=== PATIENT | female | born 1975 | race African-American/Black ===

== ENCOUNTER 2016-09-10 21:32 | Inpatient (IN) | payer BC ==
--- NOTE | ~2016-09-10 | EKG ---
PATIENT: TAWNYA ALVAREZ UNIT #: [id number] Ventricular Rate: 110 BPM Atrial Rate: 110 BPM P-R Interval: 134 ms QRS Duration: 74 ms Q-T Interval: 364 ms QTC Calculation(Bezet): 492 ms P [place]: 46 degrees Calculated R [place]: 16 degrees Calculated T [place]: 94 degrees Diagnosis Line: Sinus tachycardia Diagnosis Line: Possible Left atrial enlargement Diagnosis Line: Left ventricular hypertrophy Diagnosis Line: Nonspecific T wave abnormality Diagnosis Line: Abnormal ECG Diagnosis Line: No previous ECGs available Diagnosis Line: Confirmed by MELISA OH MD ([id number]) on Diagnosis Line: 09/13/2016 8:34:07 AM INTERPRETING MD: ALTHEA RUBIN
--- NOTE | ~2016-09-10 | DS ---
Unit #: [id number] #: [id number] Patient: TAWNYA MORGAN [id number] [address] [place], [place] [address] [id number] I MR#: [id number] NAME: TAWNYA MORGAN. ROOM: 324 Age: 41 Sex: F Admission Date: 09/11/2016 : 1975 Discharge Date: 09/15/2016 Attending Physician: Rossana Leahy M.D. Primary Care Physician: No Primary Care Physician DISCHARGE SUMMARY PRINCIPAL DIAGNOSES 1. Acute exacerbation of chronic obstructive pulmonary disease. 2. Hypertension, uncontrolled. 3. Pleuritic chest pain. 4. Tobaccoism. 5. Obesity. 6. Steroid-induced hyperglycemia. CONSULTANTS Dr. Lu - Pulmonology. PROCEDURES 1. Chest x-ray on September 10, 2016, which was normal. 2. CT angiogram of the chest on September 11, 2016, without evidence of aortic dissection. No obvious PE but bolus timing was poor. Cholelithiasis noted. 3. V/Q lung scan on September 13, 2016, which was low probability. CLINICAL HISTORY/HOSPITAL COURSE Ms. Morgan is a very nice 41-year-old -Niue[place] female who presented to the emergency department with increasing shortness of breath, cough and left sided chest pain. Please refer to H and P for further details. Chest x-ray in the emergency department was unremarkable. D-dimer was only mildly elevated at a little over 500. She was found to have significant wheezing on exam but no evidence of hypoxia. She was initially placed in observation. The patient was started on IV steroids in addition to breathing treatment but, unfortunately, still had significant shortness of breath but no evidence of hypoxia. Dr. Lu was consulted and, ultimately, steroid dose had to be increased and patient was transitioned to inpatient status. Over the course of the next several days, the patient's wheezing has resolved even with a tapering dose of steroids. Again, she has not had any hypoxia. I suspect patient has some underlying COPD plus or minus asthma given family history. She will complete a tapering course of steroids as an outpatient in addition to adding Symbicort and albuterol on a p.r.n. basis. We have discussed tobacco cessation. The patient has had all of her cigarettes discarded from her home. The patient also had significant hypertension which was uncontrolled. She has been placed on medications as outlined below and blood pressure is now controlled. This can be followed up as an outpatient. The patient also had very mild steroid-induced hyperglycemia. Sugars only Unit #: [id number] #: [id number] Patient: TAWNYA MORGAN got as high as approximately 124. I do not think she is diabetic and A1c was not done. The patient will be discharged home with followup as outlined below. DISCHARGE CONDITION Stable. DISCHARGE STATUS Discharge to home. DISCHARGE MEDICATIONS 1. Prednisone 10 mg tablets, four tablets for four days, three tablets for four days, two tablets for four days, one tablet for four days and discontinue. 2. Albuterol inhaler, one to two puffs every four hours p.r.n. for shortness of air. 3. Symbicort 80/4.5, two puffs b.i.d. with one refill given. 4. Norvasc 10 mg daily with one refill given. 5. Hydrochlorothiazide 25 mg p.o. daily with one refill given. 6. Hydralazine 25 mg p.o. b.i.d. with one refill given. 7. Lisinopril 40 mg p.o. daily with one refill given. 8. Tessalon Perles 200 mg p.o. t.i.d. p.r.n. for cough. DISCHARGE INSTRUCTIONS The patient was instructed to follow a heart healthy low calorie diet. She can increase her activity as tolerated. The patient was excused from work until September 28, 2016. FOLLOWUP The patient will follow up with Dr. Lu in approximately two weeks. She needs outpatient pulmonary function testing and perhaps outpatient polysomnography as well. She will follow up with her primary care provider in one month. Time spent on discharge - 37 minutes. Dictated by... Rossana Leahy M.D. OLAYINKA/tri TD: 09/15/2016 10:24 JOB #: [id number] DISCHARGE SUMMARY Page 1 of 1 X Rossana Leahy MD X DISCHARGE SUMMARY
--- NOTE | ~2016-09-10 | NM69 ---
[facility] A Service of [facility] RADIOLOGY TEXT RESULTS PATIENT: TAWNYA ALVAREZ LOCATION: [facility] 324 : [birth year] UNIT #: [id number] AGE: [address]: Iliana Chowdary MD SEX: F ORDER DR: [id number] [facility] [address]. [place], [place] [address] [id number] I MR#: [id number] Acc #: [id number] NAME: TAWNYA ALVAREZ : 1975 SEX: F STUDY DATE/TIME: 09/13/2016 12:07 UNIT: [address] ROOM: [facility] STUDY DESCRIPTION: NM Pulm Vent and Perf Attending Physician: Iliana Chowdary M.D. Ordering Physician: Iliana Chowdary M.D. Primary Care Physician: No Primary Care Physician MEDICAL IMAGING REPORT This report is preliminary unless electronic signature is present EXAM VQ lung scan. Date: 09/13/2016 HISTORY Left side chest pain and shortness breath since 09/10/2016. Nonproductive cough. Smoking history. D-dimer 523. COMPARISON PA lateral chest radiograph 09/12/2069. CTA chest PE protocol 09/11/2016. FINDINGS Following the inhalation of 34.5 mCi technetium 99m DTPA in aerosol form for ventilation imaging purposes, and the intravenous administration of 6 mCi technetium 99m MAA for perfusion imaging purposes, multiple projections were obtained of the chest compared to the chest radiograph from 09/12/2016 at 07:33. FINDINGS No VQ mismatch is seen. Normal radiopharmaceutical uptake is demonstrated within both lungs. IMPRESSION Normal VQ lung scan. Dictated by... Evita Vargas M.D. THIS IS AN ELECTRONICALLY VERIFIED REPORT [facility] A Service of [facility] RADIOLOGY TEXT RESULTS PATIENT: TAWNYA ALVAREZ LOCATION: [facility] 324 : [birth year] UNIT #: [id number] AGE: [address]: Iliana Chowdary MD SEX: F ORDER DR: Evita Vargas M.D. at 09/14/2016 7:08 AM BARBIE/nellie TD: 09/13/2016 15:03 JOB #: [id number] MEDICAL IMAGING REPORT Page 1 of 1 COPY
--- NOTE | ~2016-09-10 | CO ---
Unit #: [id number] #: [id number] Patient: TAWNYA ALVAREZ [id number] [address] [place], [place] [address] [id number] I MR#: [id number] NAME: TAWNYA ALVAREZ ROOM: 324 Age: 41 Sex: F Admission Date: 09/11/2016 : 1975 Attending Physician: Iliana Chowdary M.D. Primary Care Physician: No Primary Care Physician CONSULTATION REPORT REASON FOR CONSULTATION COPD and bronchitis. CHIEF COMPLAINT Shortness of breath. 41-year-old female with a past medical history likely for COPD. Smokes about a pack per day for many years. Came in with a complaint of shortness of breath, cough and chest pain. CT chest was poor timing and PE could not be ruled out. I am seeing her at bedside. She appears to be comfortable, not in any acute distress, complaining of cough and shortness of breath. REVIEW OF SYSTEMS Positive pallor. No edema, no cyanosis, no jaundice. PHYSICAL EXAMINATION VITAL SIGNS: Temperature 98, pulse 87, respirations 12, blood pressure 130/70. NEUROLOGICAL: Awake, alert, oriented. No neuro deficit. HEENT: PERRLA. NECK: Supple. No JVD. CHEST: Bilateral air entry, bilateral mild rhonchi. GI: Nontender, soft. Bowel sounds positive. EXTREMITIES: No edema. SKIN: No rashes, no ulcers. LYMPHATIC: No lymphadenopathy. DIAGNOSTIC STUDIES Labs and imaging have been reviewed. ASSESSMENT AND PLAN 1. Acute bronchitis. 2. Acute exacerbation of likely chronic obstructive pulmonary disease, likely obstructive sleep apnea. Plan is to check a BMP and also will need a V/Q scan and will need Symbicort and albuterol on discharge. Will continue patient on IV steroid. Will add p.o. antibiotics. Please see orders for detailed plan. Thank you very much for this consultation. Unit #: [id number] #: [id number] Patient: TAWNYA ALVAREZ Dictated by... Zachery Shin TD: 09/12/2016 08:17 JOB #: [id number] CONSULTATION REPORT Page 1 of 1 X Tanesha Lu MD CONSULTATION REPORT
--- NOTE | ~2016-09-10 | CR72 ---
[facility] A Service of [facility] RADIOLOGY TEXT RESULTS PATIENT: TAWNYA ALVAREZ LOCATION: [facility] 324-01 : [birth year] UNIT #: [id number] AGE: [address]: Iliana Chowdary MD SEX: F ORDER DR: [id number] [facility] [address] [place], [place] [address] [id number] I MR#: [id number] Acc #: [id number] NAME: TAWNYA ALVAREZ : 1975 SEX: F STUDY DATE/TIME: 09/10/2016 22:30 UNIT: [address] ROOM: [facility] STUDY DESCRIPTION: CR Chest Single View Portable Attending Physician: Iliana Chowdary M.D. Ordering Physician: Rolf Donohue D.O. Primary Care Physician: Primary Care Physician No MEDICAL IMAGING REPORT This report is preliminary unless electronic signature is present EXAM Portable chest, 09/10 at 22:30 INDICATIONS Chest pain, shortness of air and cough that started yesterday. FINDINGS A single AP portable view of the chest shows both lungs to be clear. The heart is normal in size. The mediastinal contour is normal. No significant bone abnormalities are seen. IMPRESSION Normal portable chest. Dictated by... Evan Cheema Jr., M.D. THIS IS AN ELECTRONICALLY VERIFIED REPORT Evan Cheema Jr., M.D. at 09/14/2016 6:00 AM JESSICA/kelly TD: 09/13/2016 22:52 JOB #: [id number] MEDICAL IMAGING REPORT Page 1 of 1 COPY
--- NOTE | ~2016-09-10 | CR63 ---
[facility] A Service of [facility] & [facility] RADIOLOGY TEXT RESULTS PATIENT: TAWNYA ALVAREZ LOCATION: [facility] 324-01 : [birth year] UNIT #: [id number] AGE: [address]: Iliana Chowdary MD SEX: F ORDER DR: [id number] [facility] [address]. [place], [place] [address] [id number] I MR#: [id number] Acc #: [id number] NAME: TAWNYA ALVAREZ : 1975 SEX: F STUDY DATE/TIME: 09/12/2016 7:33 UNIT: [address] ROOM: [facility] STUDY DESCRIPTION: CR Chest 2 View Attending Physician: Iliana Chowdary M.D. Ordering Physician: Iliana Chowdary M.D. Primary Care Physician: Primary Care Physician No MEDICAL IMAGING REPORT This report is preliminary unless electronic signature is present EXAM AP and lateral chest INDICATIONS Shortness of breath for 3 days. Comparison with 09/10/2016. FINDINGS The lungs are well expanded. No acute infiltrate. Heart size normal. Visualized osseous structures are unremarkable. IMPRESSION No active disease. Dictated by... Ernie Irvin M.D. THIS IS AN ELECTRONICALLY VERIFIED REPORT Ernie Irvin M.D. at 09/13/2016 2:19 PM ARS/psc TD: 09/12/2016 22:30 JOB #: [id number] MEDICAL IMAGING REPORT Page 1 of 1 COPY
--- NOTE | ~2016-09-10 | CT16 ---
[facility] A Service of [facility] & [facility] RADIOLOGY TEXT RESULTS PATIENT: TAWNYA ALVAREZ LOCATION: [facility] 324-01 : [birth year] UNIT #: [id number] AGE: [address]: Iliana Chowdary MD SEX: F ORDER DR: [id number] [facility] [address] [place], [place] [address] [id number] I MR#: [id number] Acc #: [id number] NAME: TAWNYA ALVAREZ : 1975 SEX: F STUDY DATE/TIME: 09/11/2016 01:56 UNIT: A U ROOM: 324 STUDY DESCRIPTION: CT Angio Chest for PE Attending Physician: Iliana Chowdary M.D. Ordering Physician: oRlf Donohue D.O. Primary Care Physician: Primary Care Physician No MEDICAL IMAGING REPORT This report is preliminary unless electronic signature is present EXAM Chest CTA 09/11/2016 01:56 INDICATION Cough, shortness of air and left side chest pain that started 3 o'clock yesterday. Pain currently rates 7/10. TECHNIQUE Axial images were obtained through the chest following IV contrast administration. 3-D reformats were obtained. No comparison. This CT examination was performed with one or more of the following radiation dose reduction techniques: automatic exposure control, adjustment of mA and/or kV according to patient size, and iterative reconstruction. FINDINGS Bolus timing is suboptimal. There is no aortic aneurysm or dissection. No large pulmonary embolism is seen. Smaller emboli could be missed due to timing of the bolus. If this remains of concern clinically, recommend a repeat study. No pleural or pericardial effusion. No adenopathy. The lungs are clear. No pneumothorax is seen. Continuation through the upper abdomen demonstrates gallstones within an otherwise normal-appearing gallbladder. IMPRESSION 1. No aortic dissection. 2. Exam is degraded by poor bolus timing. No large pulmonary embolism is seen. If there is concern for smaller emboli, I would recommend a repeat study if renal function permits. 3. No active disease in the chest. 4. Cholelithiasis. Dictated by... [facility] A Service of [facility] & [facility] RADIOLOGY TEXT RESULTS PATIENT: TAWNYA ALVAREZ LOCATION: [facility] 324- : [birth year] UNIT #: [id number] AGE: [address]: Iliana Chowdary MD SEX: F ORDER DR: Evan Cheema Jr., M.D. THIS IS AN ELECTRONICALLY VERIFIED REPORT Evan Cheema Jr., M.D. at 09/11/2016 9:13 PM JESSICA/hortencia TD: 09/11/2016 10:29 JOB #: [id number] MEDICAL IMAGING REPORT Page 1 of 1 COPY
--- NOTE | ~2016-09-10 | HP ---
Unit #: [id number] #: [id number] Patient: TAWNYA ALVAREZ [id number] [facility]. [place], [place] [address] [id number] I MR#: [id number] NAME: TAWNYA ALVAREZ. ROOM: 324 Age: 41 Sex: F Admission Date: 09/11/2016 : 1975 Attending Physician: Iliana Chowdary M.D. Primary Care Physician: No Primary Care Physician HISTORY AND PHYSICAL CHIEF COMPLAINT Shortness of breath for two days, cough and left sided chest pain for two days. HISTORY OF PRESENT ILLNESS The patient is a 41-year-old -Turkish female who basically presented with shortness of breath and cough for the past two days. She came into the emergency room and does have a history of hypertension. Other than that, she smokes Blacks, about a pack a day, and she was treated for what looks like COPD exacerbation with some pleurisy. She, however, had an elevated D-dimer as well as questionable CTPA resolved which suggests that repeat concerns persist for pulmonary embolism if renal function permits. She denies any fevers, per se. She does have a cough. Denies any dyspnea on exertion. Denies any bilateral lower extremity swelling. Denies any history of sick contacts with anyone with similar illness. Denies any rash. REVIEW OF SYSTEMS Complete ten point review of systems was done and pertinent positives noted above. PAST MEDICAL HISTORY Hypertension. She doesn't take any medications. PAST SURGICAL HISTORY 1. She has had bilateral tubal ligation in the past. 2. Some oral surgery. FAMILY HISTORY Significant for diabetes mellitus on her mother's side and hypertension and coronary artery disease on her dad's side. ALLERGIES She describes allergies to erythromycin, clarithromycin and azithromycin. SOCIAL HISTORY She currently works at the [employer]. PHYSICAL EXAMINATION GENERAL APPEARANCE: She was comfortable, not in distress. VITAL SIGNS: Blood pressure 165/99, pulse 101, respiratory rate 18, temperature 98.8. HEENT: Pupils were equal and reactive to light and accommodation. NECK: Neck was supple without thyromegaly. Unit #: [id number] #: [id number] Patient: TAWNYA ALVAREZ CARDIOVASCULAR SYSTEM: First and second heart sounds only. CHEST: Her chest wasn't clear. She had crackles, especially in her left lung base posteriorly and also anteriorly. She had transmitted sounds with some wheezing. SKIN: Warm and dry with no rashes. LYMPHATIC SYSTEM: No enlarged peripheral lymphadenopathy that I could appreciate. EXTREMITIES: no edema. CENTRAL NERVOUS SYSTEM EXAM: Alert and oriented x3. Moved all limbs spontaneously. Cranial nerves II-XII grossly intact. PSYCHIATRIC ASSESSMENT: Did not seem to respond to external stimuli. DIAGNOSTIC STUDIES IMAGING: CT angiogram results have been noted. LABORATORY: She had chemistries - glucose of 95, BUN and creatinine 10 and 0.7 with a sodium and potassium of 134 and 3.2, chloride and bicarbonate 104 and 20 respectively. She had a CBC - WBC 10.1, hemoglobin and hematocrit 10.4 and 33.6 with a platelet count 230. Neutrophil count of 81.2. CARDIOVASCULAR: She had an EKG which showed normal sinus rhythm with a ventricular rate of 66 beats/minute. ASSESSMENT AND PLAN 1. Dyspnea, questionable etiology: In light of her questionable CTA, will get pulmonary opinion. 2. Left sided chest pain: She is scheduled for stress test. She is going to have the resting images done today and the stress will be done in the morning. For her chest pain, she is getting morphine 4 mg q.4 hourly p.r.n. I will put her on some Solu-Medrol 60 mg q.6 with Duo-Nebs q.4 p.r.n. while awake and some Mucinex 600 mg p.o. b.i.d. I will also put her on some Rocephin 1 g q.24 as her allergic profile excludes Rocephin. 3. For high blood pressure, put her on hydralazine 25 mg p.o. b.i.d. 4. For DVT prophylaxis, put her on SCDs while she is in bed. 5. For GI prophylaxis, put her on Protonix 40 mg p.o. daily. 6. Code status is a Full Code. Dictated by Zachery Law TD: 09/11/2016 12:39 JOB #: [id number] Unit #: [id number] #: [id number] Patient: TAWNYA ALVAREZ HISTORY AND PHYSICAL Page 1 of 1 X Iliana Chowdary MD HISTORY AND PHYSICAL
[~2016-09-10 21:32] MED LIST: AMOXICILLIN PO; GENOPTIC5 ML OP; HCTZ PO; LIDOCAINE HC20 MG/M1 MM; MEDROL PO
[2016-09-11] LABS: BASOPHIL# 0.1 X10e3 (0-0.3); BASOPHIL% 0.6 % (0-2.5); DIFF IND NO; EOSINOPHIL# 0.2 X10e3 (0-0.7); EOSINOPHIL% 1.8 % (0.0-7.0); HEMATOCRIT 33.6 % (35.0-45.0); HEMOGLOBIN 10.4 gm/dL (12.0-16.0); LYMPHOCYTE# 0.9 X10e3 (1.0-3.5); MEAN CELL VOLUME 80.2 FL (83-96); MEAN CORPUSCULAR HEMOGLOBIN 24.7 PG (28-34); MEAN CORPUSCULAR HGB CONC 30.8 g/dL (30-36); MEAN PLATELET VOLUME 8.8 FL (6.5-11.5); MONOCYTE# 0.7 X10e3 (0-1.0); MONOCYTE% 7.4 % (3.0-12.0); NEUTROPHIL# 8.2 X10e3 (1.5-7.1); NEUTROPHIL% 81.2 % (40-75); PLATELET COUNT 230 X10e3 (140-420); RED CELL DISTRIBUTION WIDTH 16.3 % (11.0-15.5); WHITE BLOOD COUNT 10.1 X10e3 (4.0-10.5)
[2016-09-11 00:06] LABS: POC - CKMB 1.4 ng/mL (0.0-7.9); POC - TROPONIN <0.05 ng/mL (<=0.05)
[2016-09-11 00:15] LABS: BILIRUBIN, DIRECT 0.1 mg/dL (0.0-0.2); BILIRUBIN,INDIRECT 0.2 mg/dL (0.0-0.9); BILIRUBIN,TOTAL 0.3 mg/dL (0.2-2.0); BUN/CREATININE RATIO 14.28; CALCIUM SERUM 8.4 mg/dL (8.4-10.2); CREATININE SERUM 0.7 mg/dL (0.6-1.4); GLOM FILT RATE Estimated 125.6 mL/min (>60); POTASSIUM 3.2 mmol/L (3.5-5.1); PROTEIN TOTAL SERUM 7.4 g/dL (6.0-8.3)
[2016-09-11 00:17] LABS: PARTIAL THROMBOPLASTIN TIME 26.3 SECONDS (23.5-31.3)
[2016-09-11 02:50] LABS: POC - CKMB <1.0 ng/mL (0.0-7.9); POC - TROPONIN <0.05 ng/mL (<=0.05)
[2016-09-11 08:53] LABS: %MB 0.9 % (0.0-4.0); MB 2.3 ng/ml
[2016-09-11 15:36] LABS: %MB 1.3 % (0.0-4.0); MB 2.9 ng/ml
[2016-09-12 06:29] LABS: HEMATOCRIT 36.2 % (35.0-45.0); HEMOGLOBIN 10.9 gm/dL (12.0-16.0); MEAN CELL VOLUME 81.5 FL (83-96); MEAN CORPUSCULAR HEMOGLOBIN 24.4 PG (28-34); MEAN PLATELET VOLUME 9.2 FL (6.5-11.5); RED BLOOD COUNT 4.45 X10e (3.90-5.30); RED CELL DISTRIBUTION WIDTH 16.7 % (11.0-15.5); WHITE BLOOD COUNT 11.8 X10e3 (4.0-10.5)
[2016-09-12 07:04] LABS: BUN/CREATININE RATIO 21.42; CREATININE SERUM 0.7 mg/dL (0.6-1.4); GLOM FILT RATE Estimated 125.6 mL/min (>60); MAGNESIUM 2.1 mg/dL (1.6-3.0); POTASSIUM 4.9 mmol/L (3.5-5.1)
[2016-09-13 06:54] LABS: POTASSIUM 4.3 mmol/L (3.5-5.1)
[2016-09-14 07:05] LABS: BUN/CREATININE RATIO 26.25; CALCIUM SERUM 9.3 mg/dL (8.4-10.2); CREATININE SERUM 0.8 mg/dL (0.6-1.4); POTASSIUM 4.3 mmol/L (3.5-5.1)
[2016-09-15] MEDS ORDERED: TESSALON PERLE100 M1 PO (10:19)
[2016-09-15] MEDS ORDERED: HYDROCHLOROTHIA25 MG PO (10:20)
[2016-09-15] MEDS ORDERED: AMLODIPINE-OLM1 EAC1 PO (10:20)
[2016-09-15] MEDS ORDERED: ZESTRIL10 M2 PO (10:21)
[2016-09-15] MEDS ORDERED: HYDRALAZINE HCL25 MG PO (10:21)
[2016-09-15] MEDS ORDERED: PREDNISONE10 MG PO (10:23)
[2016-09-15] MEDS ORDERED: ALBUTEROL20 ml INH (10:25)
[2016-09-15] MEDS ORDERED: SYMBICORT80 INH (10:26)
== END 2016-09-15 11:50 | disposition home or self-care (01) | DRG 192 ==
LOC: CED 21:32 → C3A PCU 09-11 03:45 → CEDOF 09-11 03:45 → C3A PCU 09-11 03:45 → CED 09-11 04:28 → CEDOF 09-11 04:28 → C3A PCU 09-11 08:37
PROVIDERS: Emergency Medicine; Family Medicine; Internal Medicine
DX: J44.1 Chronic obstructive pulmonary disease with (acute) exacerbation (principal); I10 Essential (primary) hypertension; R07.89 Other chest pain; F17.210 Nicotine dependence, cigarettes, uncomplicated; J45.909 Unspecified asthma, uncomplicated; R73.9 Hyperglycemia, unspecified; T38.0X5A Adverse effect of glucocorticoids and synthetic analogues, initial encounter; Y92.9 Unspecified place or not applicable; J44.0 Chronic obstructive pulmonary disease with (acute) lower respiratory infection; J20.9 Acute bronchitis, unspecified; G47.33 Obstructive sleep apnea (adult) (pediatric); Z88.1 Allergy status to other antibiotic agents; Z98.51 Tubal ligation status; Z83.3 Family history of diabetes mellitus; Z82.49 Family history of ischemic heart disease and other diseases of the circulatory system; E66.9 Obesity, unspecified; Z68.39 Body mass index [BMI] 39.0-39.9, adult
CPT/HCPCS: 36415; 71010; 71020; 71275; 78451; 78582; 80048; 80076; 82550; 82553; 83735; 84132; 84484; 85025; 85027; 85379; 85610; 85730; 87040; 87070; 87205; 93005; 93306; 94640; 94760; 96374; 96375; 99285; A9500; A9540; A9567; J0696; J1650; J1885; J2270; J2785; J2930; Q9967